=== PATIENT | male | born 1955 | race Caucasian/White ===

== ENCOUNTER 2020-03-12 09:25 | IRF | payer OTHER, SELFPAY ==
--- NOTE | 2020-03-12 09:35 | ADMGEN ---
This patient, Ramu Pompa, was admitted to [facility] Room 219-02. Patient/family oriented to hospital policies and general routines including ID bracelet, bed and alarms, visiting hours, pain management, procedures, bathroom and other care routines, personal items, smoking policy, room service/diet, and visiting hours. Valuables list has been completed. Information on how to activate the Rapid Response Team has been discussed. Patient/Family are encouraged to report perceived risks to care and to ask questions if they do not understand what they are told or what they should do.
[2020-03-12 10:07] VITALS: BP 156/69; PULSE 79; RESP 20; TEMP 36.2; O2SAT 99
[2020-03-12 12:26] LABS: Glucose Point of Care 133 (65-105)
[2020-03-12] MEDS: SUCRALFATE 1 GM TABLET PO ×3 (12:39→18:02)
[2020-03-12] MEDS: GABAPENTIN 300 MG CAPSULE 600 MG PO ×2 (13:07→16:55)
[2020-03-12] MEDS: PANTOPRAZOLE 40 MG TABLET PO ×2 (13:07→16:55)
[2020-03-12] MEDS: INSULIN ASPART (*BKC) 100 UNITS/ML SUB-Q (13:12)
--- NOTE | 2020-03-12 15:48 | REHAB_ITS ---
DATE OF SERVICE: REASON FOR ADMISSION: This 64-year-old right-handed male has been admitted to the hospital for the amputation of the lower extremity secondary to gangrene of the right foot. The patient was seen [id number] at 10:45 a.m. HISTORY OF PRESENT ILLNESS: This is a 64-year-old right-handed male with past medical history of 1. Uncontrolled type 2 diabetes mellitus with peripheral neuropathy, peripheral vascular disease. 2. Hypertension. 3. COPD. 4. Ischemic heart disease. 5. 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 Has received the prosthesis from [facility] and at present ready to complete intensive prosthetic training. The patient's vascular surgeon confirmed that the patient needs inpatient acute rehabilitation for the training due to his right above knee amputation, and he certified that he can tolerate the physical and occupational therapy 3 hours per day 5 days a week though his medical status is subject to change given a sudden dramatic change in activity level. The patient requires nursing services for infection protection, medication management, skin integrity management and care, and patient education. He will also require close monitoring of his blood sugar, skin integrity in light of this change in mobility. At present, he demonstrates decreased strength and endurance, impaired balance, gait dysfunction, and intensive five-day course is anticipated to return the patient to an independent level. The patient has not traveled outside the [place] or had contact with someone who is ill that has traveled outside the [place] in the last 21 days, has not traveled to an area within [place] that is experiencing known transmission of the coronavirus, and has not had close personal contact with anyone that has. He reports no fever, gives no history of lower respiratory illness symptoms. Therapy was initiated at the acute care facility and the patient was transferred to us from home on 03/12/2020. SURGERY OR FALL: The patient has had no major surgery in the 100 days prior to his admission. Last surgery was above knee amputation in October 2019, and he has had no fall since that time and also during the last year. PAST MEDICAL HISTORY: As mentioned above, he carries the diagnosis of uncontrolled diabetes mellitus with peripheral neuropathy, COPD, hypertension, peripheral vascular disease, chronic kidney disease stage 3, osteoarthritis, diabetes mellitus, peptic ulcer disease, and esophageal ulcer in 2017 per EGD. PAST SURGICAL HISTORY: Amputation of residual toe, resection of the 5th metatarsal head 05/06/2019, right foot debridement 05/25/2019, right lower extremity, diagnostic aortogram, arthrectomy and balloon angioplasty of right peroneal artery and drug-coated balloon angioplasty of the right popliteal artery on 07/05/2019, right below amputation on 07/14/2019, and right above-knee amputation for this particular hospitalization. SOCIAL HISTORY: The patient lives with his in a one-level home with 5 steps to enter. Prior to his 1st amputation, patient was completely independent with no assistive device. After amputation, the patient was able to complete transfers, functional mobility with the wheelchair independently. is available to assist following rehabilitation if necessary. The patient reports no falls in the past 6 months. Last surgery was an AKA in October 2019. He is a former smoker with cessation in 02/2017. He consumes alcohol weekly and denies illicit drug use. His daughter is power of weed thinner. FAMILY HISTORY: Father had leukemia and significant family history of diabetes mellitus on the mother's side. PRIOR LEVEL OF FUNCTION: The patient was independent in eating, oral care, toileti
[2020-03-12] MEDS: CLOPIDOGREL BISULFATE 75 MG TABLET PO (16:56)
[2020-03-12] MEDS: SIMVASTATIN 20 MG TABLET 40 MG PO (16:56)
[2020-03-12] MEDS: amLODIPine BESYLATE 5 MG TABLET PO (16:56)
[2020-03-12] MEDS: INSULIN ASPART (*BKC) 100 UNITS/ML 10 UNITS SUB-Q (16:57)
[2020-03-12 17:29] LABS: Glucose Point of Care 111 (65-105)
[2020-03-12] MEDS: INSULIN DETEMIR 100 UNITS/ML 30 UNITS SUB-Q (18:02)
[2020-03-12 20:54] LABS: Glucose Point of Care 204 (65-105)
[2020-03-12 22:00] VITALS: BP 133/74; PULSE 68; RESP 18; TEMP 36.6; O2SAT 100
[2020-03-13 05:13] LABS: Basophils Absolute Auto 0.1 K/mm3 (0.0-0.1); Basophils Percent Auto 0.7 % (0.2-1.2); Eosinophils Absolute Auto 0.2 K/mm3 (0-0.3); Eosinophils Percent Auto 3.4 % (0-4.4); Hematocrit 39.7 % (42.0-52.0); Hemoglobin 12.8 g/dL (14.0-18.0); Immature Granulocyte Absolute 0.07 K/mm3 (0.00-0.031); Lymphocytes Absolute Auto 1.58 K/mm3 (0.9-3.2); Lymphocytes Percent Auto 22.5 % (18.3-44.2); Mean Corpuscular HGB Conc 32.2 g/dl (32-36); Mean Corpuscular Hemoglobin 28.9 pg (26-34); Mean Corpuscular Volume 89.6 fl (80-100); Mean Platelet Volume 9.7 fl (7.4-10.4); Monocytes Absolute Auto 0.6 K/mm3 (0.1-0.6); Monocytes Percent Auto 8.5 % (2.6-8.5); Neutrophils Absolute Auto 4.5 K/mm3 (1.3-6.7); Neutrophils Percent Auto 63.9 % (45.5-73.1); Platelet Count Result 330 k/mm3 (150-375); Red Blood Count 4.43 M/mm3 (4.6-6.20)
[2020-03-13 05:26] LABS: Blood Urea Nitrogen 25 mg/dL (9-20); Calcium 8.7 mg/dL (8.4-10.2); Carbon Dioxide 25 mmol/L (22-30); Chloride 101 mmol/L (98-107); Estimated Glomerular Filt Rate 41; Glucose 231 mg/dL (75-110); Potassium 4.5 mmol/L (3.4-5.0); Sodium 134 mmol/L (137-145)
[2020-03-13 06:00] VITALS: BP 152/70; PULSE 77; RESP 19; TEMP 36.4; O2SAT 100
[2020-03-13] MEDS: SUCRALFATE 1 GM TABLET PO ×4 (06:11→18:02)
[2020-03-13 06:52] LABS: Glucose Point of Care 230 (65-105)
[2020-03-13] MEDS: INSULIN ASPART (*BKC) 100 UNITS/ML SUB-Q ×3 (06:56→12:19)
[2020-03-13] MEDS: INSULIN DETEMIR 100 UNITS/ML 30 UNITS SUB-Q ×2 (06:58→17:18)
[2020-03-13] MEDS: GLIMEPIRIDE 1 MG TABLET PO (06:58)
[2020-03-13 06:59] VITALS: PULSE 77
[2020-03-13] MEDS: CHOLECALCIFEROL 1,000 UNIT TABLET 5000 UNITS PO (06:59)
[2020-03-13] MEDS: carvediloL 25 MG TABLET PO (06:59)
[2020-03-13] MEDS: ASPIRIN 81 MG ENTERIC TABLET PO (06:59)
[2020-03-13] MEDS: CYANOCOBALAMIN 1,000 MCG TABLET 2000 MCG PO (07:00)
[2020-03-13] MEDS: FUROSEMIDE 20 MG TABLET PO (07:00)
[2020-03-13] MEDS: GABAPENTIN 300 MG CAPSULE 600 MG PO ×3 (07:00→17:08)
[2020-03-13] MEDS: lisinopriL 5 MG TABLET PO (07:00)
--- NOTE | 2020-03-13 08:54 | RPD ---
INDIVIDUALIZED PLAN OF CARE FOR Ramu Pompa Brief Synthesis of Pre-Admission Screen, Post-Admission Evaluation and Therapy Evaluations: The patient presents to rehab with a right AKA for prosthetic training. Comorbidities include diabetic peripheral neuropathy, tremors, COPD, hypertension, peripheral vascular disease, chronic kidney disease stage 3, osteoarthritis, uncontrolled diabetes mellitus type 2, hyperlipidemia, hyperkalemia, obesity, peripheral artery disease, acute renal failure, and peptic ulcer disease. The patient?s needs will be best met in an intensive program vs. at a lower level of care. The patient requires physician services for medical oversight, coordination of care, and pain management. His medical status is subject to change given a sudden dramatic change in activity level. The patient requires nursing services for infection protection, medication management, skin integrity management and care, and patient education. He will require close monitoring of his blood sugars as well as his skin integrity in light of this change in mobility. Deficits include:ADLs, Balance, Endurance, Family Training/Education, Mobility, Pain Management, ROM, Safety, Strength, and Transfers. Hose Seamer/Case Management for: Discharge Planning and Patient/Family Counseling Physical Therapy: 5 days per week for 90 minutes. Treatments may include: Therapeutic Exercise, Gait Training, Neuromuscular Re-education, Transfer Training, Community Reintegration, Bed Mobility, Patient/Family Education, Wheelchair Mobility Group Therapy/Concurrent Therapy Rationales: -Improve attention span during functional activities in a distracted environment. -Enhance problem solving and/or adequate judgment skills during functional activities in a distracted environment. -Promote increased safety awareness in a distracted environment to reduce fall risk with functional tasks, transfers, and ambulation to allow a more safe, self-sufficient return to the home environment. -Improve dynamic balance skills to promote safety and independence with functional activities in a distracted environment for maximum gain. Occupational Therapy: 5 days per week for 90 minutes. Treatments may include: Therapeutic Exercise, Therapeutic Activity, Cognitive Training, Self-Care Transfer Training, Community Reintegration, Home Management, Patient/Family Education, Wheelchair Mobility Training, Energy Conservation Training Group Therapy/Concurrent Therapy Rationales: -Allow therapist to observe and teach generalization and carry-over of skills learned in individual therapy. -Enhance problem solving and sequencing skills during therapeutic activities in a distracted environment. -Promote increased safety awareness in a realistic setting to reduce fall risk with functional tasks due to visual and verbal distractions. -Increase functional level with ADLs, ADL transfers and use of adaptive equipment through therapeutic activities with others while promoting safety to allow a more safe, self-sufficient return home. Medical Prognosis: Good Anticipated Length of Stay: 5 days Rehab Goals: Eating Goal: 06-Independent Oral Hygiene Goal: 06-Independent Toileting Hygiene Goal: 06-Independent Shower/Bathe Self Goal: 06-Independent Upper Body Dressing Goal: 06-Independent Lower Body Dressing Goal: 06-Independent Putting On/Taking Off Footwear Goal: 06-Independent Rolling Left and Right Goal: 06-Independent Sit to Lying Goal: 06-Independent Lying to Sitting on Side of Bed Goal: 06-Independent Sit to Stand Goal: 06-Independent Chair/[id number] Transfer Goal: 06-Independent Toilet Transfer Goal: 06-Independent Car Transfer Goal: 06-Independent Walk 10' Goal: 06-Independent Walk 50' with Two Turns Goal: 06-Independent Walk 150' Goal: 06-Independent Walk 10' on Uneven Surface Goal: 06-Independent 1 Step (Curb) Goal: 06-Independent 4 Steps Goal: 06-Independent 12 Steps Goal Score: 03-Partial/Moderate Assista
--- NOTE | 2020-03-13 12:08 | WPDNEURORHBP ---
Subjective Date/time seen: 03/13/20 12:08 Interval history: this 64-year-old known to me from his hospitalization here after he had had the right above the knee amputation with underlying medical issues he was admitted yesterday for the prosthetic training which he got not to non ago and he feels that is quite well fitted and ready to work in the rehab for it to work The patient denies any headache nausea vomiting chest pain shortness of breath fever chills sore throat Review of Systems Review of Systems: All systems reviewed & are unremarkable except as noted in HPI and below Functional Status Ambulation Ability Ability to Ambulate 10 Feet: Standby Assistance Ability to Ambulate 50 Feet With 2 Turns: Standby Assistance Ambulation Assistive Devices: Walker, Standard Transfers Ability Ability to Transfer In/Out of Chair: Standby Assistance Exam Const: General: comfortable and no acute distress HENMT: General nose exam: Normal nares present Mouth: Yes moist mucous membranes Eyes: General: appearance normal, both eyes and all related structures Neck: Neck: supple and no JVD Resp: Effort & Inspection: normal respiratory effort Auscultation: clear to auscultation bilaterally Cardio: Rate: regular rate Rhythm: regular rhythm GI: GI Palp: Yes Soft to palpation Auscultation: normal bowel sounds Skin: General skin exam: normal color and no rashes or lesions noted Neuro: Other: patient is awake alert well oriented time place and person is speech and language functions are normal cranial exam jessica normal he does have evidence of the peripheral neuropathy and peripheral vascular disease and right above the knee amputation Extrem: Other: the stump from the right above the knee amputation is clean and the prosthesis seem to be fitting well Psych: Mental Status: mental status grossly normal Objective Data Vital Signs Vital Signs: Vital Signs - 24 hr 03/12/20 22:00 03/13/20 06:00 03/13/20 06:59 Temperature 36.6 C 36.4 C L Pulse Rate 68 77 77 Respiratory Rate 18 19 Blood Pressure 133/74 152/70 H Pulse Oximetry 100 100 Intake/Output Intake/Output: Intake & Output 03/10/20 03/11/20 03/12/20 03/13/20 23:59 23:59 23:59 23:59 Intake Total 960 400 Balance 960 400 Meds/Results Medications: Active Medications Generic Name Dose Route Start Last Admin Trade Name Freq PRN Reason Stop Dose Admin Acetaminophen 650 mg 07/13/20 11:02 Tylenol Tablet PO Q6H PRN Pain (Scale Score 1-3) Amlodipine Besylate 5 mg 03/12/20 18:00 03/12/20 16:56 Norvasc PO 5 mg QPM JENNIFER Administration Aspirin 81 mg 03/13/20 09:00 03/13/20 06:59 Aspirin Ec PO 81 mg DAILY JENNIFER Administration Carvedilol 25 mg 03/13/20 09:00 03/13/20 06:59 Coreg PO 25 mg DAILY JENNIFER Administration Clopidogrel Bisulfate 75 mg 03/12/20 18:00 03/12/20 16:56 Plavix PO 75 mg QPM JENNIFER Administration Cyanocobalamin 2,000 mcg 03/13/20 09:00 03/13/20 07:00 Vitamin B-12 Tab PO 2,000 mcg DAILY JENNIFER Administration Dextrose 12.5 gm 03/12/20 12:47 Dextrose 50% Syringe IV PUSH PRN PRN Hypoglycemia Protocol Furosemide 20 mg 03/13/20 09:00 03/13/20 07:00 Lasix Tablet PO 20 mg DAILY JENNIFER Administration Gabapentin 600 mg 03/12/20 13:00 03/13/20 07:00 Neurontin PO 600 mg TID JENNIFER Administration Glimepiride 1 mg 03/13/20 08:00 03/13/20 06:58 Amaryl PO 1 mg DAILY@0800 JENNIFER Administration Glucagon 1 mg 03/12/20 12:47 Glucagon For Inj IM PRN PRN Hypoglycemia Protocol Glucose 15 gm 03/12/20 12:47 Glutose 15 PO PRN PRN Hypoglycemia Protocol Dextrose 1,000 mls @ 100 mls/hr 03/12/20 12:47 Dextrose 5% 1,000 Ml IVPB PRN PRN Hypoglycemia Protocol Insulin Aspart 2 - 5 units 03/12/20 17:00 03/13/20 06:56 Novolog SUB-Q 2 units TIDWM JENNIFER Administration Protocol Insulin A
[2020-03-13 12:15] LABS: Glucose Point of Care 205 (65-105)
[2020-03-13] MEDS: PANTOPRAZOLE 40 MG TABLET PO ×2 (12:19→17:08)
[2020-03-13] MEDS: INSULIN ASPART (*BKC) 100 UNITS/ML 7 UNITS SUB-Q ×2 (12:20→17:20)
[2020-03-13 14:00] VITALS: BP 151/71; PULSE 74; RESP 22; TEMP 36.5; O2SAT 99
--- NOTE | 2020-03-13 15:10 | PCNSR ---
On 03/13/20, the student, Lambert Casas, provided care and completed [facility] documentation on this patient. I have reviewed the student's documentation and agree with the findings.
[2020-03-13] MEDS: polyethylene glycoL 3350 17 GM POWD.PACK PO (16:03)
[2020-03-13] MEDS: CLOPIDOGREL BISULFATE 75 MG TABLET PO (17:20)
[2020-03-13] MEDS: SIMVASTATIN 20 MG TABLET 40 MG PO (17:21)
[2020-03-13] MEDS: amLODIPine BESYLATE 5 MG TABLET PO (17:21)
[2020-03-13 17:45] LABS: Glucose Point of Care 136 (65-105)
--- NOTE | 2020-03-13 18:10 | PC.NURSE ---
Patient contacted me around 4pm stating he had an episode of hypoglycemia and used his glucometer to check and was 74 which is low for him. He had 2 applejuices and some vanilla wafers and re-checked for a 122. At dinner time he was 136 (had been 205 at lunch). Will continue to monitor.
[2020-03-13 21:35] LABS: Glucose Point of Care 146 (65-105)
[2020-03-13 22:00] VITALS: BP 140/50; PULSE 72; RESP 16; TEMP 36.1; O2SAT 97
[2020-03-14] MEDS: SUCRALFATE 1 GM TABLET PO ×3 (05:35→17:25)
[2020-03-14 06:00] VITALS: BP 146/67; PULSE 78; RESP 17; TEMP 36.4; O2SAT 100
[2020-03-14 06:51] LABS: Glucose Point of Care 228 (65-105)
[2020-03-14] MEDS: GLIMEPIRIDE 1 MG TABLET PO (07:40)
[2020-03-14 07:41] VITALS: PULSE 78
[2020-03-14] MEDS: carvediloL 25 MG TABLET PO (07:41)
[2020-03-14] MEDS: ASPIRIN 81 MG ENTERIC TABLET PO (07:41)
[2020-03-14] MEDS: CHOLECALCIFEROL 1,000 UNIT TABLET 5000 UNITS PO (07:41)
[2020-03-14] MEDS: GABAPENTIN 300 MG CAPSULE 600 MG PO ×3 (07:42→17:25)
[2020-03-14] MEDS: CYANOCOBALAMIN 1,000 MCG TABLET 2000 MCG PO (07:43)
[2020-03-14] MEDS: lisinopriL 5 MG TABLET PO (07:43)
[2020-03-14] MEDS: FUROSEMIDE 20 MG TABLET PO (07:43)
[2020-03-14] MEDS: INSULIN DETEMIR 100 UNITS/ML 30 UNITS SUB-Q ×2 (07:47→17:28)
[2020-03-14] MEDS: INSULIN ASPART (*BKC) 100 UNITS/ML 7 UNITS SUB-Q ×3 (07:48→17:27)
[2020-03-14] MEDS: INSULIN ASPART (*BKC) 100 UNITS/ML SUB-Q (07:52)
[2020-03-14 08:00] VITALS: PULSE 82; RESP 18; O2SAT 99
[2020-03-14 12:32] LABS: Glucose Point of Care 171 (65-105)
[2020-03-14] MEDS: PANTOPRAZOLE 40 MG TABLET PO ×2 (12:45→17:25)
[2020-03-14 14:00] VITALS: BP 142/76; PULSE 80; RESP 20; TEMP 36.7; O2SAT 100
--- NOTE | 2020-03-14 14:09 | WPDNEURORHBP ---
Subjective Date/time seen: 03/14/20 14:09 Interval history: this 64-year-old gentleman is here for the prosthetic training after having had the right AKA his prosthesis is well fitted his doing fairly well and walked quite a bit today he denies any headache nausea vomiting chest pain shortness of breath fever chills sore throat Review of Systems Review of Systems: All systems reviewed & are unremarkable except as noted in HPI and below Functional Status Ambulation Ability Ability to Ambulate 10 Feet: Independent Ability to Ambulate 50 Feet With 2 Turns: Independent Ability to Ambulate 150 Feet: Independent Ambulation Assistive Devices: Walker, Standard Transfers Ability Ability to Transfer In/Out of Chair: Independent Exam Const: General: comfortable and no acute distress HENMT: General nose exam: Normal nares present Mouth: Yes moist mucous membranes Eyes: General: appearance normal, both eyes and all related structures Neck: Neck: supple and no JVD Resp: Effort & Inspection: normal respiratory effort Auscultation: clear to auscultation bilaterally Cardio: Rate: regular rate Rhythm: regular rhythm GI: GI Palp: Yes Soft to palpation Auscultation: normal bowel sounds Skin: General skin exam: normal color and no rashes or lesions noted Neuro: Other: patient remains awake and alert well oriented normal speech and language function normal cranial examination and of course evidence of the peripheral neuropathy along with the right AKA is doing well with therapy for the prosthetic training Extrem: Other: right AKA stump is clean Psych: Mental Status: mental status grossly normal Objective Data Vital Signs Vital Signs: Vital Signs - 24 hr 03/13/20 22:00 03/14/20 06:00 03/14/20 07:41 Temperature 36.1 C L 36.4 C L Pulse Rate 72 78 78 Respiratory Rate 16 17 Blood Pressure 140/50 L 146/67 H Pulse Oximetry 97 100 Intake/Output Intake/Output: Intake & Output 03/11/20 03/12/20 03/13/20 03/14/20 23:59 23:59 23:59 23:59 Intake Total 960 940 720 Balance 960 940 720 Meds/Results Medications: Active Medications Generic Name Dose Route Start Last Admin Trade Name Freq PRN Reason Stop Dose Admin Acetaminophen 650 mg 03/12/20 11:02 Tylenol Tablet PO Q6H PRN Pain (Scale Score 1-3) Amlodipine Besylate 5 mg 03/12/20 18:00 03/13/20 17:21 Norvasc PO 5 mg QPM JENNIFER Administration Aspirin 81 mg 03/13/20 09:00 03/14/20 07:41 Aspirin Ec PO 81 mg DAILY JENNIFER Administration Carvedilol 25 mg 03/13/20 09:00 03/14/20 07:41 Coreg PO 25 mg DAILY JENNIFER Administration Clopidogrel Bisulfate 75 mg 03/12/20 18:00 03/13/20 17:20 Plavix PO 75 mg QPM JENNIFER Administration Cyanocobalamin 2,000 mcg 03/13/20 09:00 03/14/20 07:43 Vitamin B-12 Tab PO 2,000 mcg DAILY JENNIFER Administration Dextrose 12.5 gm 03/12/20 12:47 Dextrose 50% Syringe IV PUSH PRN PRN Hypoglycemia Protocol Furosemide 20 mg 03/13/20 09:00 03/14/20 07:43 Lasix Tablet PO 20 mg DAILY JENNIFER Administration Gabapentin 600 mg 03/12/20 13:00 03/14/20 12:45 Neurontin PO 600 mg TID JENNIFER Administration Glimepiride 1 mg 03/13/20 08:00 03/14/20 07:40 Amaryl PO 1 mg DAILY@0800 JENNIFER Administration Glucagon 1 mg 03/12/20 12:47 Glucagon For Inj IM PRN PRN Hypoglycemia Protocol Glucose 15 gm 03/12/20 12:47 Glutose 15 PO PRN PRN Hypoglycemia Protocol Dextrose 1,000 mls @ 100 mls/hr 03/12/20 12:47 Dextrose 5% 1,000 Ml IVPB PRN PRN Hypoglycemia Protocol Insulin Aspart 2 - 5 units 03/12/20 17:00 03/14/20 12:46 Novolog SUB-Q Not Given TIDWM [facility] Protocol Insulin Aspart 7 units 03/13/20 12:00 03/14/20 12:47 Novolog SUB-Q 7 units TIDWM JENNIFER Administration Insulin Detemir 30 units 03/12/20 17:00 03/14/20 07:47 Levemir SUB-Q 30 units BID JENNIFER Admin
[2020-03-14] MEDS: SIMVASTATIN 20 MG TABLET 40 MG PO (17:25)
[2020-03-14] MEDS: CLOPIDOGREL BISULFATE 75 MG TABLET PO (17:25)
[2020-03-14] MEDS: amLODIPine BESYLATE 5 MG TABLET PO (17:25)
[2020-03-14 19:56] LABS: Glucose Point of Care 74 (65-105)
[2020-03-14 21:44] LABS: Glucose Point of Care 94 (65-105)
[2020-03-14 22:00] VITALS: BP 108/43; PULSE 73; RESP 18; TEMP 36.7; O2SAT 97
[2020-03-15] MEDS: SUCRALFATE 1 GM TABLET PO ×5 (01:18→20:31)
[2020-03-15 05:52] VITALS: BP 134/89; PULSE 88; RESP 16; TEMP 36.2; O2SAT 98
[2020-03-15 07:03] LABS: Glucose Point of Care 225 (65-105)
[2020-03-15] MEDS: GLIMEPIRIDE 1 MG TABLET PO (07:54)
[2020-03-15 07:55] VITALS: PULSE 86
[2020-03-15] MEDS: carvediloL 25 MG TABLET PO (07:55)
[2020-03-15] MEDS: ASPIRIN 81 MG ENTERIC TABLET PO (07:55)
[2020-03-15] MEDS: FUROSEMIDE 20 MG TABLET PO (07:56)
[2020-03-15] MEDS: CHOLECALCIFEROL 1,000 UNIT TABLET 5000 UNITS PO (07:56)
[2020-03-15] MEDS: GABAPENTIN 300 MG CAPSULE 600 MG PO ×3 (07:57→18:02)
[2020-03-15] MEDS: CYANOCOBALAMIN 1,000 MCG TABLET 2000 MCG PO (07:57)
[2020-03-15] MEDS: lisinopriL 5 MG TABLET PO (07:57)
[2020-03-15] MEDS: INSULIN ASPART (*BKC) 100 UNITS/ML SUB-Q (08:28)
[2020-03-15] MEDS: INSULIN DETEMIR 100 UNITS/ML 30 UNITS SUB-Q ×2 (08:29→18:05)
[2020-03-15] MEDS: INSULIN ASPART (*BKC) 100 UNITS/ML 7 UNITS SUB-Q ×3 (08:29→18:04)
[2020-03-15 08:30] VITALS: PULSE 86; RESP 16
[2020-03-15 12:10] LABS: Glucose Point of Care 120 (65-105)
[2020-03-15] MEDS: PANTOPRAZOLE 40 MG TABLET PO ×2 (12:12→18:02)
[2020-03-15 13:23] VITALS: BMI 35.4
--- NOTE | 2020-03-15 13:29 | PCNSR ---
On 03/15/20, the student, Lambert Casas, provided care and completed [facility] documentation on this patient. I have reviewed the student's documentation and agree with the findings.
[2020-03-15 14:00] VITALS: BP 128/59; PULSE 85; RESP 18; TEMP 36.4; O2SAT 98
--- NOTE | 2020-03-15 14:04 | WPDNEURORHBP ---
Subjective Date/time seen: 03/15/20 14:04 Interval history: this 64-year-old gentleman is here because of left AKA and getting the prosthetic training his overall picture is improving he denies any headache nausea vomiting chest pain shortness of breath fever chills or sore throat Review of Systems Review of Systems: All systems reviewed & are unremarkable except as noted in HPI and below Functional Status Ambulation Ability Ability to Ambulate 10 Feet: Standby Assistance Ability to Ambulate 50 Feet With 2 Turns: Standby Assistance Ability to Ambulate 150 Feet: Independent Ambulation Assistive Devices: Walker, Standard Transfers Ability Ability to Transfer In/Out of Chair: Independent Exam Const: General: comfortable and no acute distress HENMT: General nose exam: Normal nares present Mouth: Yes moist mucous membranes Eyes: General: appearance normal, both eyes and all related structures Neck: Neck: supple and no JVD Resp: Effort & Inspection: normal respiratory effort Auscultation: clear to auscultation bilaterally Cardio: Rate: regular rate Rhythm: regular rhythm GI: GI Palp: Yes Soft to palpation Auscultation: normal bowel sounds Skin: General skin exam: normal color and no rashes or lesions noted Neuro: Other: patient is awake and alert well oriented time place and person he does have evidence of peripheral neuropathy and peripheral vascular disease and doing fairly well in the therapy regimen for the prosthetic training Extrem: Other: right AKA with prosthesis working well Psych: Mental Status: mental status grossly normal Objective Data Vital Signs Vital Signs: Vital Signs - 24 hr 03/15/20 22:00 03/16/20 06:00 03/16/20 07:37 Temperature 36.4 C 36.5 C Pulse Rate 72 75 75 Respiratory Rate 18 18 Blood Pressure 137/68 150/74 H Pulse Oximetry 99 100 Intake/Output Intake/Output: Intake & Output 03/13/20 03/14/20 03/15/20 03/16/20 23:59 23:59 23:59 23:59 Intake Total 940 960 480 480 Balance 940 960 480 480 Meds/Results Medications: Active Medications Generic Name Dose Route Start Last Admin Trade Name Freq PRN Reason Stop Dose Admin Acetaminophen 650 mg 03/12/20 11:02 Tylenol Tablet PO Q6H PRN Pain (Scale Score 1-3) Amlodipine Besylate 5 mg 03/12/20 18:00 03/15/20 18:03 Norvasc PO 5 mg QPM JENNIFER Administration Aspirin 81 mg 03/13/20 09:00 03/16/20 07:37 Aspirin Ec PO 81 mg DAILY JENNIFER Administration Carvedilol 25 mg 03/13/20 09:00 03/16/20 07:37 Coreg PO 25 mg DAILY JENNIFER Administration Clopidogrel Bisulfate 75 mg 03/12/20 18:00 03/15/20 18:03 Plavix PO 75 mg QPM JENNIFER Administration Cyanocobalamin 2,000 mcg 03/13/20 09:00 03/16/20 07:38 Vitamin B-12 Tab PO 2,000 mcg DAILY JENNIFER Administration Dextrose 12.5 gm 03/12/20 12:47 Dextrose 50% Syringe IV PUSH PRN PRN Hypoglycemia Protocol Furosemide 20 mg 03/13/20 09:00 03/16/20 07:39 Lasix Tablet PO 20 mg DAILY JENNIFER Administration Gabapentin 600 mg 03/12/20 13:00 03/16/20 12:12 Neurontin PO 600 mg TID [facility] Administration Glimepiride 1 mg 03/13/20 08:00 03/16/20 07:36 Amaryl PO 1 mg DAILY@0800 JENNIFER Administration Glucagon 1 mg 03/12/20 12:47 Glucagon For Inj IM PRN PRN Hypoglycemia Protocol Glucose 15 gm 03/12/20 12:47 Glutose 15 PO PRN PRN Hypoglycemia Protocol Dextrose 1,000 mls @ 100 mls/hr 03/12/20 12:47 Dextrose 5% 1,000 Ml IVPB PRN PRN Hypoglycemia Protocol Insulin Aspart 2 - 5 units 03/12/20 17:00 03/16/20 12:14 Novolog SUB-Q Not Given TIDWM [facility] Protocol Insulin Aspart 7 units 03/13/20 12:00 03/16/20 12:14 Novolog SUB-Q 7 units TIDWM JENNIFER Administration Insulin Detemir 30 units 03/12/20 17:00 03/16/20 07:39 Levemir SUB-Q 30 units BID JENNIFER Administration Lisinopril 5 mg 03/13/20 09:00 03/16
[2020-03-15 16:47] LABS: Glucose Point of Care 74 (65-105)
[2020-03-15] MEDS: CLOPIDOGREL BISULFATE 75 MG TABLET PO (18:03)
[2020-03-15] MEDS: amLODIPine BESYLATE 5 MG TABLET PO (18:03)
[2020-03-15] MEDS: SIMVASTATIN 20 MG TABLET 40 MG PO (18:04)
[2020-03-15 21:19] LABS: Glucose Point of Care 158 (65-105)
[2020-03-15 22:00] VITALS: BP 137/68; PULSE 72; RESP 18; TEMP 36.4; O2SAT 99
[2020-03-16] MEDS: SUCRALFATE 1 GM TABLET PO ×4 (05:39→20:08)
[2020-03-16 06:00] VITALS: BP 150/74; PULSE 75; RESP 18; TEMP 36.5; O2SAT 100
[2020-03-16 07:10] LABS: Glucose Point of Care 163 (65-105)
[2020-03-16] MEDS: GLIMEPIRIDE 1 MG TABLET PO (07:36)
[2020-03-16 07:37] VITALS: PULSE 75
[2020-03-16] MEDS: carvediloL 25 MG TABLET PO (07:37)
[2020-03-16] MEDS: ASPIRIN 81 MG ENTERIC TABLET PO (07:37)
[2020-03-16] MEDS: INSULIN ASPART (*BKC) 100 UNITS/ML 7 UNITS SUB-Q ×3 (07:37→17:18)
[2020-03-16] MEDS: CYANOCOBALAMIN 1,000 MCG TABLET 2000 MCG PO (07:38)
[2020-03-16] MEDS: CHOLECALCIFEROL 1,000 UNIT TABLET 5000 UNITS PO (07:38)
[2020-03-16] MEDS: GABAPENTIN 300 MG CAPSULE 600 MG PO ×3 (07:39→17:17)
[2020-03-16] MEDS: FUROSEMIDE 20 MG TABLET PO (07:39)
[2020-03-16] MEDS: INSULIN DETEMIR 100 UNITS/ML 30 UNITS SUB-Q ×2 (07:39→17:18)
[2020-03-16] MEDS: lisinopriL 5 MG TABLET PO (07:40)
[2020-03-16 12:07] LABS: Glucose Point of Care 145 (65-105)
[2020-03-16] MEDS: PANTOPRAZOLE 40 MG TABLET PO ×2 (12:12→17:17)
[2020-03-16 14:00] VITALS: BP 118/55; PULSE 78; RESP 18; TEMP 36.3; O2SAT 97
--- NOTE | 2020-03-16 14:06 | WPDNEURORHBP ---
Subjective Date/time seen: 03/16/20 14:06 Interval history: this patient with the right AKA with underlying diabetes is here for the prosthetic training his doing fairly well making progress working with rehab a moved looking forward to be going home with the training finished There is no headache nausea vomiting chest pain shortness of breath fever chills sore throat Review of Systems Review of Systems: All systems reviewed & are unremarkable except as noted in HPI and below Functional Status Ambulation Ability Ability to Ambulate 10 Feet: Standby Assistance Ability to Ambulate 50 Feet With 2 Turns: Standby Assistance Ability to Ambulate 150 Feet: Independent Ambulation Assistive Devices: Walker, Standard Transfers Ability Ability to Transfer In/Out of Chair: Independent Exam Const: General: comfortable and no acute distress HENMT: General nose exam: Normal nares present Mouth: Yes moist mucous membranes Eyes: General: appearance normal, both eyes and all related structures Neck: Neck: supple and no JVD Resp: Effort & Inspection: normal respiratory effort Auscultation: clear to auscultation bilaterally Cardio: Rate: regular rate Rhythm: regular rhythm GI: GI Palp: Yes Soft to palpation Auscultation: normal bowel sounds Skin: General skin exam: normal color and no rashes or lesions noted Neuro: Other: patient is awake alert well oriented time place and person the evidence of peripheral neuropathy and peripheral vascular disease remained stable Extrem: Other: the right AKA is stable Psych: Mental Status: mental status grossly normal Objective Data Vital Signs Vital Signs: Vital Signs - 24 hr 03/15/20 22:00 03/16/20 06:00 03/16/20 07:37 Temperature 36.4 C 36.5 C Pulse Rate 72 75 75 Respiratory Rate 18 18 Blood Pressure 137/68 150/74 H Pulse Oximetry 99 100 Intake/Output Intake/Output: Intake & Output 03/13/20 03/14/20 03/15/20 03/16/20 23:59 23:59 23:59 23:59 Intake Total 940 960 480 480 Balance 940 960 480 480 Meds/Results Medications: Active Medications Generic Name Dose Route Start Last Admin Trade Name Freq PRN Reason Stop Dose Admin Acetaminophen 650 mg 03/12/20 11:02 Tylenol Tablet PO Q6H PRN Pain (Scale Score 1-3) Amlodipine Besylate 5 mg 03/12/20 18:00 03/15/20 18:03 Norvasc PO 5 mg QPM JENNIFER Administration Aspirin 81 mg 03/13/20 09:00 03/16/20 07:37 Aspirin Ec PO 81 mg DAILY JENNIFER Administration Carvedilol 25 mg 03/13/20 09:00 03/16/20 07:37 Coreg PO 25 mg DAILY JENNIFER Administration Clopidogrel Bisulfate 75 mg 03/12/20 18:00 03/15/20 18:03 Plavix PO 75 mg QPM JENNIFER Administration Cyanocobalamin 2,000 mcg 03/13/20 09:00 03/16/20 07:38 Vitamin B-12 Tab PO 2,000 mcg DAILY JENNIFER Administration Dextrose 12.5 gm 03/12/20 12:47 Dextrose 50% Syringe IV PUSH PRN PRN Hypoglycemia Protocol Furosemide 20 mg 03/13/20 09:00 03/16/20 07:39 Lasix Tablet PO 20 mg DAILY JENNIFER Administration Gabapentin 600 mg 03/12/20 13:00 03/16/20 12:12 Neurontin PO 600 mg TID JENNIFER Administration Glimepiride 1 mg 03/13/20 08:00 03/16/20 07:36 Amaryl PO 1 mg DAILY@0800 JENNIFER Administration Glucagon 1 mg 03/12/20 12:47 Glucagon For Inj IM PRN PRN Hypoglycemia Protocol Glucose 15 gm 03/12/20 12:47 Glutose 15 PO PRN PRN Hypoglycemia Protocol Dextrose 1,000 mls @ 100 mls/hr 03/12/20 12:47 Dextrose 5% 1,000 Ml IVPB PRN PRN Hypoglycemia Protocol Insulin Aspart 2 - 5 units 03/12/20 17:00 03/16/20 12:14 Novolog SUB-Q Not Given TIDWM [facility] Protocol Insulin Aspart 7 units 03/13/20 12:00 03/16/20 12:14 Novolog SUB-Q 7 units TIDWM JENNIFER Administration Insulin Detemir 30 units 03/12/20 17:00 03/16/20 07:39 Levemir SUB-Q 30 units BID JENNIFER Administration Lisinopril 5 mg 03/13/20 09:00
[2020-03-16 17:08] LABS: Glucose Point of Care 142 (65-105)
[2020-03-16] MEDS: CLOPIDOGREL BISULFATE 75 MG TABLET PO (17:17)
[2020-03-16] MEDS: amLODIPine BESYLATE 5 MG TABLET PO (17:17)
[2020-03-16] MEDS: SIMVASTATIN 20 MG TABLET 40 MG PO (17:17)
[2020-03-16 21:13] LABS: Glucose Point of Care 187 (65-105)
[2020-03-16 21:43] VITALS: BP 107/40; PULSE 72; RESP 16; TEMP 36.6; O2SAT 97
[2020-03-17] MEDS: SUCRALFATE 1 GM TABLET PO (05:50)
[2020-03-17 06:00] VITALS: BP 148/78; PULSE 78; RESP 18; TEMP 36.7; O2SAT 97
[2020-03-17 06:47] LABS: Glucose Point of Care 198 (65-105)
[2020-03-17] MEDS: INSULIN DETEMIR 100 UNITS/ML 30 UNITS SUB-Q (08:40)
[2020-03-17] MEDS: INSULIN ASPART (*BKC) 100 UNITS/ML 7 UNITS SUB-Q (08:41)
[2020-03-17] MEDS: GABAPENTIN 300 MG CAPSULE 600 MG PO (08:41)
[2020-03-17 08:42] VITALS: PULSE 78
[2020-03-17] MEDS: ASPIRIN 81 MG ENTERIC TABLET PO (08:42)
[2020-03-17] MEDS: CHOLECALCIFEROL 1,000 UNIT TABLET 5000 UNITS PO (08:42)
[2020-03-17] MEDS: GLIMEPIRIDE 1 MG TABLET PO (08:42)
[2020-03-17] MEDS: carvediloL 25 MG TABLET PO (08:42)
[2020-03-17] MEDS: CYANOCOBALAMIN 1,000 MCG TABLET 2000 MCG PO (08:43)
[2020-03-17] MEDS: FUROSEMIDE 20 MG TABLET PO (08:43)
[2020-03-17] MEDS: lisinopriL 5 MG TABLET PO (08:43)
--- NOTE | 2020-03-21 15:19 | PM.DS ---
DS: Admitting Diagnosis Admitting Diagnosis Admitting Diagnosis: Type 2 diabetes mellitus with diabetic peripheral angiopathy with gangrene DS: Discharge Diagnosis Discharge Diagnosis (1) Encounter for prosthetic gait training: Code(s): Z47.89 - Encounter for other orthopedic aftercare Status: Acute (2) History of right above knee amputation: Code(s): Z89.611 - Acquired absence of right leg above knee Status: Acute (3) Below-knee amputation of right lower extremity: Code(s): S88.111A - Complete traumatic amputation at level between knee and ankle, right lower leg, initial encounter Status: Acute (4) Peripheral vascular disease: Code(s): I73.9 - Peripheral vascular disease, unspecified Status: Acute (5) Peripheral vascular angioplasty status: Code(s): Z98.62 - Peripheral vascular angioplasty status Status: Acute (6) Diabetic neuropathy: Code(s): E11.40 - Type 2 diabetes mellitus with diabetic neuropathy, unspecified Status: Acute (7) Diabetic foot infection: Code(s): E11.628 - Type 2 diabetes mellitus with other skin complications; L08.9 - Local infection of the skin and subcutaneous tissue, unspecified Status: Acute (8) Gangrene: Code(s): I96 - Gangrene, not elsewhere classified Status: Acute (9) Amputation of lower extremity: Code(s): S88.919A - Complete traumatic amputation of unspecified lower leg, level unspecified, initial encounter Status: Acute DS: Summary Hospital Course Reason for hospitalization: this 64-year-old was admitted primarily for the prosthetic training with underlying medical issues as mentioned most of them have resolved there is no sign of infection anymore and the received the PT OT gait training and medical management of his underlying diabetes mellitus and other medical issues Hospital Course: after receiving the prosthetic training the quality improvement measures was as follows Eating independent oral hygiene independent toileting independent bathing independent upper body dressing independent lower body dressing independent footwear independent rolling in bed independent sitting to lying independent lying to sitting independent sit to stand independent car transfers independent toilet transfers independent chair transfers independent toilet transfers independent car transfers were supervision walking 10 feet supervision walking 50 feet with to turns supervision walking 150 feet patient was unable to walking 10 feet uneven surfaces independent car per setup supervision 4 step supervision 12 steps patient was unable to PACU object wheelchair 50 feet wheelchair and 50 feet all independent the patient was sent home with outpatient PT OT and gait training Time Spent with Patient Time attestation: Total time spent providing and/or coordinating discharge services: Exam Const: General: comfortable and no acute distress HENMT: General nose exam: Normal nares present Mouth: Yes dry mucous membranes Eyes: General: appearance normal, both eyes and all related structures Neck: Neck: supple and no JVD Resp: Effort & Inspection: normal respiratory effort Auscultation: clear to auscultation bilaterally Cardio: Rate: regular rate Rhythm: regular rhythm GI: GI Palp: Yes Soft to palpation Auscultation: normal bowel sounds Skin: General skin exam: normal color and no rashes or lesions noted Neuro: Other: patient's mental status was normal cranial exam shows normal with the prosthetic training overall picture has significantly improved from the functional standpoint Extrem: Other: the right above the knee amputation along with prosthesis seem to be working well Psych: Mental Status: mental status grossly normal Discharge Plan Discharge Attending physician on discharge: Herbert Hoffman Discharging Clinician: Herbert Hoffman Anticipated Discharge Date/Time: 03/17/20 14:59 Patient Dispositio
== END 2020-03-17 10:20 | disposition home or self-care (01) | DRG 561 ==
PROVIDERS: Admitting Provider Psychiatry & Neurology Neurology; PCP Family Medicine; Visit Provider Psychiatry & Neurology Neurology
DX: Z47.81 Encounter for orthopedic aftercare following surgical amputation (principal); E11.51 Type 2 diabetes mellitus with diabetic peripheral angiopathy without gangrene; R26.89 Other abnormalities of gait and mobility; Z89.611 Acquired absence of right leg above knee; E11.42 Type 2 diabetes mellitus with diabetic polyneuropathy; E11.22 Type 2 diabetes mellitus with diabetic chronic kidney disease; E11.65 Type 2 diabetes mellitus with hyperglycemia; E78.5 Hyperlipidemia, unspecified; I12.9 Hypertensive chronic kidney disease with stage 1 through stage 4 chronic kidney disease, or unspecified chronic kidney disease; I25.9 Chronic ischemic heart disease, unspecified; J44.9 Chronic obstructive pulmonary disease, unspecified; K27.7 Chronic peptic ulcer, site unspecified, without hemorrhage or perforation; M19.90 Unspecified osteoarthritis, unspecified site; N18.3 Chronic kidney disease, stage 3 (moderate); R25.1 Tremor, unspecified; Z91.81 History of falling; Z79.4 Long term (current) use of insulin; Z89.422 Acquired absence of other left toe(s); Z87.891 Personal history of nicotine dependence; Z79.82 Long term (current) use of aspirin
CPT/HCPCS: 36415; 80048; 85025; 97110; 97116; 97161; 97165; 97530; 97535; 97542; A9270; J1815